=== PATIENT | male | born 1995 | race Two or more races ===

== ENCOUNTER 2020-05-18 18:20 | Emergency (ER) | payer SELFPAY ==
[~2020-05-18] VITALS: Ht 180.3 cm; Wt 68.0 kg
--- NOTE | 2020-05-18 18:50 | NUR ---
c/o abd pain x 3 days, -N/V,-diarrhea 8/10 pain scale. Patient a/ox4, breathing even and unlabored, nos ob noted. Needs attended, Javi JEAN BAPTISTE at bedside for eval.
[2020-05-18] MEDS ORDERED: IV NS 0.9% 1,000 ML BAG IV ONE (19:00)
[2020-05-18] MEDS ORDERED: KETOROLAC TROMETHAMINE INJ 30 MG/ML VIAL ONE (19:00)
[2020-05-18] MEDS ORDERED: KETOROLAC TROMETHAMINE INJ 30 MG/ML VIAL IV ONE (19:00)
[2020-05-18 19:03] LABS: BASOPHILS # (AUTO) 0.1 /CMM (0.0-0.2); BASOPHILS % (AUTO) 1.1 % (0.0-2.0); HEMATOCRIT 47 % (39-51); LYMPHOCYTES # (AUTO) 2.1 /CMM (0.8-4.8); LYMPHOCYTES % (AUTO) 28.6 % (20.0-44.0); MEAN CORPUSCULAR HGB CONC 34 g/dl (31.0-36.0); MEAN CORPUSCULAR VOLUME 94 fL (80-96); MONOCYTES # (AUTO) 0.7 /CMM (0.1-1.30); MONOCYTES % (AUTO) 8.9 % (2.0-12.0); NEUTROPHILS # (AUTO) 4.1 /CMM (1.8-8.9); NEUTROPHILS % (AUTO) 55.4 % (43.0-81.0); PLATELET COUNT (AUTO) 286 /CMM (150-450); RED BLOOD CELL COUNT(AUTO) 4.99 MIL/uL (4.5-6.0); WHITE BLOOD COUNT (AUTO) 7.3 K/uL (4.3-11.0)
--- NOTE | 2020-05-18 19:11 | NUR ---
Iv line established, blood drawn by phleb and sent to lab.
--- NOTE | 2020-05-18 19:13 | NUR ---
urine sent to lab.
[2020-05-18 19:17] LABS: CALCIUM, SERUM 9.2 mg/dL (8.5-10.1); CREATININE 0.8 mg/dL (0.6-1.3); POTASSIUM 3.8 mmol/L (3.5-5.1)
[2020-05-18 19:17] LABS: APPEARANCE,URINE Clear (CLEAR); BILIRUBIN,URINE Negative (NEGATIVE); BLOOD, URINE Negative Ery/uL (NEGATIVE); COLOR,URINE Yellow (YELLOW); KETONES,URINE Negative (NEGATIVE); LEUKOCYTE ESTERASE ,URINE Negative (NEGATIVE); NITRITE, URINE Negative (NEGATIVE); PROTEIN,URINE Negative (NEGATIVE); UGLUCOSE Negative (NEGATIVE); UROBILINOGEN,URINE 0.2 EU/dL (0.2)
[2020-05-18 19:22] LABS: ALBUMIN 4.5 g/dL (3.4-5.0); BILIRUBIN,DIRECT 0.1 mg/dL (0.0-0.2); BILIRUBIN,TOTAL 0.5 mg/dL (0.2-1.0); TOTAL PROTEIN, SERUM 8.1 g/dL (6.4-8.2)
[2020-05-18] MEDS ORDERED: MAG HYDROX/AL HYDROX/SIMETH 30 ML UDC ONE (19:56)
[2020-05-18] MEDS ORDERED: LIDOCAINE VISCOUS 2% UD 15 ML UDC ONE (19:56)
[2020-05-18] MEDS ORDERED: LIDOCAINE VISCOUS 2% UD 15 ML UDC MM ONE (20:00)
[2020-05-18] MEDS ORDERED: MAG HYDROX/AL HYDROX/SIMETH 30 ML UDC PO ONE (20:00)
--- NOTE | 2020-05-18 20:42 | NUR ---
pt is medically stable for d/c. IV removed. Catheter intact and site benign. Pressure and 4x4 applied to site. No bleeding noted.Patient discharged to home in stable condition. Rx and Written and verbal after care instructions given. Patient verbalizes understanding of instruction.
[2020-05-18 20:43] VITALS: BP 119/67
== END 2020-05-18 20:43 | disposition home or self-care (01) ==
LOC: ER 18:26
DX: R10.32 Left lower quadrant pain (principal); Z98.890 Other specified postprocedural states
CPT/HCPCS: 36415; 74176; 80048; 80076; 81001; 83690; 85025; 96361; 96374; 99284; J1885; J7030; 81000-TC